=== PATIENT | male | born 1965 | race Caucasian/White ===

== ENCOUNTER 2018-07-18 15:59 | Inpatient (IN) | payer OTHER ==
[~2018-07-18] VITALS: Ht 172.7 cm; Wt 80.5 kg
[2018-07-18] MEDS ORDERED: ONDANSETRON 4 MG/2 ML VIAL IV ONE (17:00)
[2018-07-18] MEDS ORDERED: MORPHINE SULFATE 2 MG/1 ML DISP.SYRIN IV ONE (17:00)
[2018-07-18] MEDS ORDERED: PANTOPRAZOLE SODIUM 40 MG VIAL IV ONE (17:00)
[2018-07-18] MEDS ORDERED: IV NORMAL SALINE 1000 ML BAG IV ONE (17:00)
[2018-07-18] MEDS ORDERED: MORPHINE SULFATE 4 MG/1 ML DISP.SYRIN ONE (17:17)
[2018-07-18 17:18] LABS: BASOPHILS # (AUTO) 0.1 K/uL (0.0-8.0); BASOPHILS % (AUTO) 0.7 % (0.0-2.0); EOSINOPHILS # (AUTO) 0.1 K/uL (0.0-0.7); EOSINOPHILS % (AUTO) 0.6 % (0.0-7.0); HEMATOCRIT 42.3 % (36.7-47.1); HEMOGLOBIN 14.4 g/dL (12.5-16.3); LYMPHOCYTES # (AUTO) 1.4 K/uL (20.0-40.0); LYMPHOCYTES % (AUTO) 9.6 % (20.5-51.5); MEAN CORPUSCULAR HEMOGLOBIN 35.7 uug (23.8-33.4); MEAN CORPUSCULAR HGB CONC 34 g/dL (32.5-36.3); MEAN CORPUSCULAR VOLUME 104.9 fL (73.0-96.2); MONOCYTES # (AUTO) 0.5 K/uL (2.0-10.0); MONOCYTES % (AUTO) 3.1 % (0.0-11.0); NEUTROPHILS # (AUTO) 12.9 K/uL (1.8-8.9); PLATELET COUNT (AUTO) 336 K/uL (152-348); RED BLOOD CELL COUNT(AUTO) 4.03 MIL/uL (4.06-5.63)
[2018-07-18] MEDS ORDERED: PANTOPRAZOLE SODIUM 40 MG VIAL ONE (17:18)
[2018-07-18] MEDS ORDERED: ONDANSETRON 4 MG/2 ML VIAL ONE (17:18)
[2018-07-18 17:23] LABS: CREATININE 1.4 mg/dL (0.6-1.3); POTASSIUM 4.4 mmol/L (3.5-5.1)
--- NOTE | 2018-07-18 17:26 | NUR ---
PATIENT C/O ABDOMINAL PAIN. MEDICATION GIVEN ORDERED.
[2018-07-18 17:29] LABS: BILIRUBIN,DIRECT 0.1 mg/dL (0.0-0.2); BILIRUBIN,TOTAL 0.9 mg/dL (0.2-1.0); TOTAL PROTEIN, SERUM 7.5 g/dL (6.4-8.2)
[2018-07-18] MEDS ORDERED: HYDROMORPHONE 2 MG/1 ML DISP.SYRIN ONE (17:50)
--- NOTE | 2018-07-18 17:56 | NUR ---
PATINT STATES HE STILL HAS ABDOMINAL PAIN. DR RUFFIN WAS AT BEDSIDE. DILAUDID GIVEN ORDERED.
[2018-07-18] MEDS ORDERED: HYDROMORPHONE 1 MG/1 ML DISP.SYRIN IV ONE (18:00)
--- NOTE | 2018-07-18 18:19 | NUR ---
PATIENT STATES PAIN HAS DIMINISHED.
--- NOTE | 2018-07-18 20:15 | NUR ---
REPORT GIVEN TO MEDSUR NURSEJAVIER
[2018-07-18 21:15] VITALS: BP 134/84
--- NOTE | 2018-07-18 21:15 | NUR ---
RECEIVED PT FROM [facility].UNDER THE CARE OF BASILIO AGUILA NP. DX: PANCREATITIS. MCC ASSESSMENT DONE. IV INTACT AND PATENT.PT WITH NO ACUTE DISTRESS. ADMISSION PROCESS AND CARE PLAN INITIATED. BELONGING LIST DONE. SAFETY AND COMFORT PROVIDED. WILL CONTINUE TO MONITOR.
[2018-07-18] MEDS ORDERED: INSULIN REGULAR, HUMAN 300 UNIT/3 ML VIAL SQ PRN (21:30)
[2018-07-18] MEDS ORDERED: Z GUARD REMEDY PASTE 57 GM TUBE TOP PRN (21:30)
[2018-07-18] MEDS ORDERED: MAGNESIUM HYDROXIDE 30 ML LIQUID UDC PO PRN (21:30)
[2018-07-18] MEDS ORDERED: ACETAMINOPHEN 325 MG TABLET PO PRN (21:30)
[2018-07-18] MEDS ORDERED: ZOLPIDEM 5 MG TABLET PO PRN (21:30)
[2018-07-18] MEDS ORDERED: FENTANYL CITRATE 100 MCG/2 ML AMPUL IV PRN (21:30)
[2018-07-18] MEDS ORDERED: ONDANSETRON 4 MG/2 ML VIAL IV PRN (21:30)
[2018-07-18] MEDS ORDERED: INSULIN REGULAR, HUMAN 300 UNITS/3 ML VIAL SQ PRN (21:30)
[2018-07-18] MEDS ORDERED: DEXTROSE 50% 50 ML DISP.SYRIN IV PRN (21:30)
--- NOTE | 2018-07-18 21:35 | NUR ---
Pt. admitted to [facility], under care of MARGO AGUILA Belongs List completed
[2018-07-18] MEDS: IV LACTATED RINGERS SOLUTION 1,000 ML IV PRN (22:39)
[2018-07-18 22:44] LABS: MAGNESIUM 1.8 mg/dL (1.8-2.4); PHOSPHOROUS 4.4 mg/dL (2.5-4.9)
[2018-07-19] MEDS ORDERED: MEROPENEM 1 G in IV NORMAL SALINE 100 ML IV SCH ×2
[2018-07-19] MEDS ORDERED: MEROPENEM 1 G VIAL IV ONE (01:08)
[2018-07-19] MEDS: IV LACTATED RINGERS SOLUTION 1,000 ML IV PRN ×8 (01:49→23:32)
[2018-07-19 02:45] LABS: *BILIRUBIN,URIN NEGATIVE (NEGATIVE); *BLOOD, URINE Trace-lysed (NEGATIVE); *CLARITY,URINE CLEAR (CLEAR); *COLOR,URINE YELLOW (YELLOW); *KETONES,URINE NEGATIVE (NEGATIVE); *PROTEIN,URINE NEGATIVE (NEGATIVE); *UROBILINOGEN,URINE 0.2 E.U./dl (NORMAL); LEUKOCYTE ESTERASE ,URINE NEGATIVE (NEGATIVE); NITRITE, URINE NEGATIVE (NEGATIVE); UGLUCOSE NEGATIVE (NEGATIVE)
[2018-07-19 03:44] VITALS: BP 114/56
[2018-07-19 04:01] LABS: BACTERIA,URINE NONE SEEN /HPF (NONE SEEN); SQUAMOUS EPITHELIAL CELL,UR FEW /HPF (NONE SEEN); WBC,URINE 0-3 /HPF (0-3)
--- NOTE | 2018-07-19 06:30 | NUR ---
PT SLEPT THROUGHOUT THE SHIFT. PT SHOWS NO SIGNS OF DISTRESS. PT IV INTACT AND PATENT. PRESCRIBED MEDICATION GIVEN AND PT TOLERATED IT WELL.SAFETY AND COMFORT PROVIDED. WILL ENDORSE ACCORDINGLY TO DAYSHIFT NURSE FOR CONTINUITY OF CARE.
[2018-07-19 06:33] LABS: BASOPHILS # (AUTO) 0.1 K/uL (0.0-8.0); BASOPHILS % (AUTO) 0.9 % (0.0-2.0); EOSINOPHILS # (AUTO) 0.2 K/uL (0.0-0.7); EOSINOPHILS % (AUTO) 1.2 % (0.0-7.0); HEMATOCRIT 40.6 % (36.7-47.1); HEMOGLOBIN 13.9 g/dL (12.5-16.3); LYMPHOCYTES # (AUTO) 2.4 K/uL (20.0-40.0); LYMPHOCYTES % (AUTO) 17.5 % (20.5-51.5); MEAN CORPUSCULAR HEMOGLOBIN 36.3 uug (23.8-33.4); MEAN CORPUSCULAR HGB CONC 34 g/dL (32.5-36.3); MONOCYTES % (AUTO) 7.5 % (0.0-11.0); NEUTROPHILS # (AUTO) 9.9 K/uL (1.8-8.9); NEUTROPHILS % (AUTO) 72.9 % (38.5-71.5); PLATELET COUNT (AUTO) 298 K/uL (152-348); RED BLOOD CELL COUNT(AUTO) 3.83 MIL/uL (4.06-5.63); WHITE BLOOD COUNT (AUTO) 13.6 K/uL (3.6-10.2)
[2018-07-19] MEDS: BLOOD SUGAR DIAGNOSTIC 1 EACH STRIP VI SCH ×4 (06:40→20:25)
[2018-07-19 06:55] LABS: CREATININE 1.2 mg/dL (0.6-1.3); MAGNESIUM 1.7 mg/dL (1.8-2.4); PHOSPHOROUS 3.3 mg/dL (2.5-4.9); POTASSIUM 3.9 mmol/L (3.5-5.1)
[2018-07-19 06:58] LABS: THYROID STIMULATING HORMONE 0.868 mIU/mL (0.358-3.740)
[2018-07-19] MEDS: PANTOPRAZOLE SODIUM 40 MG VIAL IV SCH (09:17)
[2018-07-19] MEDS: MEROPENEM 1 G in IV NORMAL SALINE 100 ML IV SCH ×3 (09:18→23:23)
[2018-07-19] MEDS: MAGNESIUM SULFATE/D5W 100 ML IV SCH ×2 (11:08→14:41)
[2018-07-19 11:30] VITALS: BP 110/65
[2018-07-19 15:08] VITALS: BP 116/76
[2018-07-19 19:23] VITALS: BP 125/64
--- NOTE | 2018-07-19 20:00 | NUR ---
Received pt alert and oriented x 3. No s/s of acute distress at this time. Pt states that he is still having pain, but refusing pain medication at this time, relaxation and alternative measures provided. Made aware of plan of care. Safe environment implemented. Call light within reach.
[2018-07-19 20:31] LABS: BASOPHILS # (AUTO) 0.1 K/uL (0.0-8.0); BASOPHILS % (AUTO) 0.7 % (0.0-2.0); EOSINOPHILS # (AUTO) 0.2 K/uL (0.0-0.7); EOSINOPHILS % (AUTO) 1.1 % (0.0-7.0); HEMOGLOBIN 13.3 g/dL (12.5-16.3); LYMPHOCYTES # (AUTO) 2.4 K/uL (20.0-40.0); LYMPHOCYTES % (AUTO) 17.7 % (20.5-51.5); MEAN CORPUSCULAR HEMOGLOBIN 35.8 uug (23.8-33.4); MEAN CORPUSCULAR HGB CONC 34 g/dL (32.5-36.3); MEAN CORPUSCULAR VOLUME 104.9 fL (73.0-96.2); MONOCYTES # (AUTO) 0.8 K/uL (2.0-10.0); MONOCYTES % (AUTO) 6.2 % (0.0-11.0); NEUTROPHILS # (AUTO) 10.1 K/uL (1.8-8.9); NEUTROPHILS % (AUTO) 74.3 % (38.5-71.5); PLATELET COUNT (AUTO) 299 K/uL (152-348); RED BLOOD CELL COUNT(AUTO) 3.72 MIL/uL (4.06-5.63); WHITE BLOOD COUNT (AUTO) 13.6 K/uL (3.6-10.2)
[2018-07-19 20:36] LABS: CREATININE 1.2 mg/dL (0.6-1.3); POTASSIUM 3.8 mmol/L (3.5-5.1)
[2018-07-19 20:40] LABS: MAGNESIUM 1.9 mg/dL (1.8-2.4); PHOSPHOROUS 2.6 mg/dL (2.5-4.9)
[2018-07-20] MEDS: IV LACTATED RINGERS SOLUTION 1,000 ML IV PRN ×6 (01:46→15:05)
[2018-07-20 03:45] VITALS: BP 131/79
[2018-07-20 06:02] LABS: BASOPHILS # (AUTO) 0.1 K/uL (0.0-8.0); BASOPHILS % (AUTO) 1.1 % (0.0-2.0); EOSINOPHILS # (AUTO) 0.2 K/uL (0.0-0.7); EOSINOPHILS % (AUTO) 1.6 % (0.0-7.0); HEMATOCRIT 38.5 % (36.7-47.1); HEMOGLOBIN 13.1 g/dL (12.5-16.3); LYMPHOCYTES # (AUTO) 2.4 K/uL (20.0-40.0); LYMPHOCYTES % (AUTO) 19.3 % (20.5-51.5); MEAN CORPUSCULAR HEMOGLOBIN 35.8 uug (23.8-33.4); MEAN CORPUSCULAR HGB CONC 34 g/dL (32.5-36.3); MEAN CORPUSCULAR VOLUME 105.5 fL (73.0-96.2); MONOCYTES # (AUTO) 0.9 K/uL (2.0-10.0); MONOCYTES % (AUTO) 7.4 % (0.0-11.0); NEUTROPHILS # (AUTO) 8.7 K/uL (1.8-8.9); NEUTROPHILS % (AUTO) 70.6 % (38.5-71.5); PLATELET COUNT (AUTO) 287 K/uL (152-348); RED BLOOD CELL COUNT(AUTO) 3.65 MIL/uL (4.06-5.63); WHITE BLOOD COUNT (AUTO) 12.4 K/uL (3.6-10.2)
[2018-07-20 06:22] LABS: CREATININE 1.2 mg/dL (0.6-1.3); MAGNESIUM 1.8 mg/dL (1.8-2.4); PHOSPHOROUS 2.2 mg/dL (2.5-4.9); POTASSIUM 3.8 mmol/L (3.5-5.1)
[2018-07-20] MEDS: BLOOD SUGAR DIAGNOSTIC 1 EACH STRIP VI SCH ×3 (06:47→16:23)
--- NOTE | 2018-07-20 06:54 | NUR ---
Pt diet advanced to clear liquids and tolerating. LR administered as ordered. No distress at this time. Safe environment implemented.
[2018-07-20] MEDS: PANTOPRAZOLE SODIUM 40 MG VIAL IV SCH (08:26)
[2018-07-20] MEDS: MEROPENEM 1 G in IV NORMAL SALINE 100 ML IV SCH ×2 (08:26→16:15)
[2018-07-20] MEDS: NEUTRA PHOS PACKET PO SCH ×3 (08:39→16:15)
[2018-07-20 11:17] VITALS: BP 127/72
[2018-07-20 15:38] VITALS: BP 130/71
--- NOTE | 2018-07-20 19:00 | NUR ---
Pt left the floor for discharge home. Discharge instructions provided and discussed with the pt. Meds reconciled by MD and reviewed with the pt. Pt verbalized understanding of discharge instructions and medications. Belonging sheet reviewed and pt signed. Right PIV antecubital removed. Pt stable and nad noted upon discharge.
== END 2018-07-20 19:20 | disposition home or self-care (01) | DRG 438 ==
LOC: ER 16:01 → MED 20:51
PROVIDERS: ADMIT Hospitalist; ATTEND Hospitalist
DX: K85.90 Acute pancreatitis without necrosis or infection, unspecified (principal); N17.0 Acute kidney failure with tubular necrosis; N43.3 Hydrocele, unspecified; Z90.5 Acquired absence of kidney; E83.39 Other disorders of phosphorus metabolism; E83.42 Hypomagnesemia; K76.0 Fatty (change of) liver, not elsewhere classified; K57.30 Diverticulosis of large intestine without perforation or abscess without bleeding; D72.829 Elevated white blood cell count, unspecified
CPT/HCPCS: 36415; 71045; 83605; 83615; 83690; 83735; 84100; 84443; 85025; 85610; 85730; 87040; 87086; 93005; A4663; C9113; J1170; J1815; J2185; J2270; J2405; J3010; J3475; J3490; J7030; J7120

== ENCOUNTER 2023-08-09 21:59 | Emergency (ER) | payer BC, OTHER ==
[~2023-08-09] VITALS: Ht 172.7 cm; Wt 82.6 kg
[2023-08-09 23:54] VITALS: BP_DIAS 95; TEMP 207.5; O2SAT 97
== END 2023-08-09 23:54 | disposition home or self-care (01) ==
LOC: ER 22:03
DX: S92.351A Displaced fracture of fifth metatarsal bone, right foot, initial encounter for closed fracture (principal); X50.1XXA Overexertion from prolonged static or awkward postures, initial encounter; Y93.89 Activity, other specified; Y92.89 Other specified places as the place of occurrence of the external cause; Y99.8 Other external cause status
CPT/HCPCS: 73630; A4663